=== PATIENT | female | born 1990 | race Caucasian/White ===

== ENCOUNTER 2020-07-24 08:54 | Inpatient (IN) ==
[2020-07-24] MEDS ORDERED: 0.9 % Sodium Chloride 1,000 ML IVC ONE (09:18)
[2020-07-24] MEDS ORDERED: Ondansetron 4 MG/2 ML VIAL IVP ONE (09:18)
[2020-07-24 09:46] LABS: Basophils % 0.1 %; Eosinophils % 0.5 %; Hematocrit 43.2 % (35.3-44.9); Hemoglobin 13.9 g/dL (11.5-15.4); Immature Granulocytes % 0.1 % (0-4); Lymphocytes # 1.2 K/mcL (0.6-4.6); Lymphocytes % 15.7 %; Mean Corpuscular HGB Conc 32.2 g/dL (31.6-35.5); Mean Corpuscular Hemoglobin 29.5 pg (28.0-33.3); Mean Corpuscular Volume 91.7 fL (83.0-100.0); Mean Platelet Volume 9.8 fL (9.4-12.4); Monocytes # 0.3 K/mcL (0.0-1.3); Monocytes % 4.3 %; Platelet Count 253 K/mcL (140-400); Red Blood Count 4.71 M/mcL (3.82-4.97); Red Cell Distribution Width 12.4 % (11.5-14.5); Segmented Neutrophils % 79.3 %; White Blood Count 7.5 K/mcL (4.3-11.1)
[2020-07-24 09:55] LABS: Bilirubin,Urine Negative (Negative); Blood,Urine Large (Negative); Clarity,Urine Turbid (Clear); Color,Urine Light-Orange (Yellow); Glucose,Urine (UA) Normal (Normal); Ketones,Urine Negative (Negative); Leukocyte Esterase,Urine Small (Negative); Mucus,Urine Few per lpf (None-Few); Nitrite,Urine Negative (Negative); PH,Urine 6.5 pH Units (5.0-8.0); Protein,Urine 30 mg/dL (Neg-Trace); RBC,Urine TNTC per hpf (0-3); Squamous Epithelial Cell,Urine Moderate per hpf (None-Few); Urobilinogen,Urine Normal (Normal); WBC,Urine 15-30 per hpf (0-3)
[2020-07-24 10:04] LABS: Alanine Aminotransferase 10 Units/L (7-52); Albumin 4.2 g/dL (3.5-5.7); Albumin/Globulin Ratio 1.3 (1.1-2.2); Alkaline Phosphatase 78 Units/L (34-104); Aspartate Amino Transferase 13 Units/L (13-39); BUN/Creatinine Ratio 11 (6-26); Bilirubin,Total 0.4 mg/dL (0.3-1.0); Blood Urea Nitrogen 8 mg/dL (6-20); Calcium 9.2 mg/dL (8.6-10.3); Carbon Dioxide 26 mEq/L (23-29); Chloride 104 mEq/L (98-107); Globulin 3.3 g/dL (2.4-3.5); Glucose 95 mg/dL (70-105); Lipase 23 Units/L (11-82); Osmolality,Calculated 286 (280-300); Potassium 3.4 mEq/L (3.5-5.1); Sodium 139 mEq/L (136-145); Total Protein 7.5 g/dL (6.4-8.9); eGFR For African Americans > 60 (> 60); eGFR For Non-African Americans > 60 (> 60)
[2020-07-24 10:25] LABS: Acetaminophen < 10 mcg/mL (10-20); Chol/HDL Ratio 3.4 (0-4.9); Cholesterol 162 mg/dL (< 200); Ethanol < 10 mg/dL (Less than 10); HDL Cholesterol 48 mg/dL (40-59); LDL Cholesterol,Calculated 80 mg/dL (< 100); Salicylate < 2.5 mg/dL (15.0-30.0); Triglycerides 170 mg/dL (< 150)
[2020-07-24 11:47] LABS: Amphetamine Screen,Urine Negative ng/mL (Cutoff=1000); Barbiturate Screen,Urine Negative ng/mL (Cutoff=200); Benzodiazepines Screen,Urine Negative ng/mL (Cutoff=200); Cannabinoid Screen,Urine Negative ng/mL (Cutoff = 50); Cocaine Screen,Urine Negative ng/mL (Cutoff= 300); Opiate Screen,Urine Negative ng/mL (Cutoff=300); Phencyclidine Screen,Urine Negative ng/mL (Cutoff=25)
[2020-07-24 11:59] LABS: Estimated Average Glucose 88 mg/dl; Hemoglobin A1C 4.7 %
[2020-07-24] MEDS ORDERED: *HR* LORazepam 1 MG TABLET PO PRN (15:51)
[2020-07-24] MEDS ORDERED: *HR* LORazepam 2 MG/ML VIAL IM PRN (15:51)
[2020-07-24] MEDS ORDERED: Mag Hydrox/Al Hydrox/Simeth 30 ML UDC PO PRN (15:51)
[2020-07-24] MEDS ORDERED: Acetaminophen 325 MG TABLET PO PRN (15:51)
[2020-07-24] MEDS ORDERED: hydrOXYzine pamoate 25 MG CAPSULE PO PRN (15:51)
[2020-07-24] MEDS ORDERED: Haloperidol Lactate 5 MG/ML VIAL IM PRN (15:51)
[2020-07-24] MEDS ORDERED: traZODone 50 MG TABLET PO PRN (15:51)
[2020-07-24] MEDS ORDERED: haloperidoL 5 MG TABLET PO PRN (15:51)
[2020-07-24] MEDS ORDERED: MOM Conc 10 ML UD.LIQ PO PRN (15:51)
[2020-07-25] MEDS: BuPROPion XL (24 HR) 150 MG TABLET PO SCH (10:39)
[2020-07-25 11:39] LABS: Thyroid Stimulating Hormone 0.663 mcIU/mL (0.340-5.600)
[2020-07-26] MEDS: BuPROPion XL (24 HR) 150 MG TABLET PO SCH (08:40)
[2020-07-26 13:03] VITALS: BP 130/88
== END 2020-07-26 11:45 | disposition home or self-care (01) | DRG 885 ==
LOC: EMEROOARM 08:54 → 1ANU 15:43
PROVIDERS: ADMIT Psychiatry & Neurology Psychiatry; ATTEND Psychiatry & Neurology Psychiatry